=== PATIENT | male | born 1980 | race Two or more races ===

== ENCOUNTER 2017-07-22 05:47 | Emergency (ER) | payer MEDICAID ==
[~2017-07-22] VITALS: Ht 152.4 cm; Wt 66.0 kg
[2017-07-22] MEDS ORDERED: IBUPROFEN 600MG TABLET PO ONE (08:30)
[2017-07-22 12:33] VITALS: BP 126/78
== END 2017-07-22 12:35 | disposition home or self-care (01) ==
LOC: ER 05:47
DX: J01.90 Acute sinusitis, unspecified (principal)
CPT/HCPCS: 71045; 87804; 99285